=== PATIENT | male | born 1960 | race Hispanic/Latino ===

== ENCOUNTER → 2021-04-11 | Day surgery (SDC) | payer SELFPAY ==
[~2021-04-11] MED LIST: FUROSEMIDE40 MG PO; GLIPIZIDE5 MG PO; METFORMIN HCL500 MG PO; OMEPRAZOLE40 MG PO; OR PHACO EYE KIT ONE; PREOP PHACO EYE KIT ONE
[2021-04-11 12:40] VITALS: BP 150/76
== END | disposition home or self-care (01) ==
LOC: OR 09:20
PROVIDERS: ATTEND Ophthalmology
DX: H25.12 Age-related nuclear cataract, left eye (principal); E11.9 Type 2 diabetes mellitus without complications; K21.9 Gastro-esophageal reflux disease without esophagitis; Z79.84 Long term (current) use of oral hypoglycemic drugs
CPT/HCPCS: 36415; 82948

== ENCOUNTER → 2021-04-25 | Day surgery (SDC) | payer SELFPAY ==
[2021-04-25 16:00] VITALS: BP 170/86
== END | disposition home or self-care (01) ==
LOC: OR 13:40
PROVIDERS: ATTEND Ophthalmology
DX: H25.11 Age-related nuclear cataract, right eye (principal); E11.9 Type 2 diabetes mellitus without complications; Z79.84 Long term (current) use of oral hypoglycemic drugs
CPT/HCPCS: 36415; 66984; 82948; V2787